=== PATIENT | female | born 1975 ===

== ENCOUNTER 2018-10-21 11:43 | Emergency (ER) | payer OTHER ==
[2018-10-21 12:14] VITALS: BP 142/92
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
[2018-10-21] MEDS ORDERED: IBUPROFEN PO ONE (13:56)
[2018-10-21] MEDS ORDERED: DELTASONE PO ONE (13:56)
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
== END 2018-10-21 14:23 | disposition home or self-care (01) ==
LOC: ED 11:43
DX: M79.10 Myalgia, unspecified site (principal); E78.00 Pure hypercholesterolemia, unspecified; E78.5 Hyperlipidemia, unspecified; Z88.0 Allergy status to penicillin; Z88.8 Allergy status to other drugs, medicaments and biological substances
CPT/HCPCS: 72040; 72100; 99283; J7512